=== PATIENT | male | born 1935 | race Caucasian/White ===

== ENCOUNTER 2021-02-08 18:37 | Inpatient (IN) ==
[2021-02-08] MEDS ORDERED: NS 0.9% 1000 ml BAG 1,000 ML IV ONE (19:23)
[2021-02-08 20:19] LABS: Hematocrit 40 % (42-52); Hemoglobin 13.5 g/dL (14.0-18.0); Mean Corpuscular HGB Conc 34 g/dL (31-36); Mean Corpuscular Hemoglobin 34 pg (27-31); Mean Corpuscular Volume 98 fL (80-94); Mean Platelet Volume 8.5 fL (7.4-10.4); Platelet Count 118 10^3/uL (150-450); Red Blood Count 4.03 10^6 /uL (4.18-5.48); Red Cell Distribution Width 13 % (10-15); White Blood Count 8.7 10^3/uL (3.5-10.8)
[2021-02-08 20:35] LABS: INR 1.12 (0.86-1.15)
[2021-02-08 20:36] LABS: ALT 21 U/L (7-52); AST 32 U/L (13-39); Albumin 3.5 g/dL (3.2-5.2); Albumin/Globulin Ratio 1.1 (1-3); Alkaline Phosphatase 65 U/L (35-149); Anion Gap 10 mmol/L (2-11); Blood Urea Nitrogen 36 mg/dL (6-24); C Reactive Protein 211.81 mg/L (<8.01); CO2 Carbon Dioxide 22 mmol/L (22-32); Calcium 8.7 mg/dL (8.6-10.3); Chloride 99 mmol/L (101-111); Globulin 3.3 g/dL (2-4); Glucose 150 mg/dL (70-100); Potassium 4.1 mmol/L (3.5-5.0); Sodium 131 mmol/L (135-145); Total Protein 6.8 g/dL (6.4-8.9)
[2021-02-08 20:40] LABS: Rapid COVID-19 Molecular Undetected (Undetected)
[2021-02-08 20:41] LABS: Troponin I 0.13 ng/mL (<0.03)
[2021-02-08 20:57] LABS: RBC Morphology Normal (Normal)
[2021-02-08 20:58] LABS: ABS Lymphocytes 0.4 10^3/ul (1.0-4.8); ABS Neutrophils 7.3 10^3/ul (1.5-7.7); Lymphocyte % 4.2 %; Toxic Granulation 1+
[2021-02-08 22:52] LABS: Urine Appearance Cloudy; Urine Bilirubin Negative (Negative); Urine Blood 2+ (Negative); Urine Color Yellow; Urine Glucose Negative (Negative); Urine Ketones Negative (Negative); Urine Nitrite Negative (Negative); Urine Protein 3+(>=500 mg/dL) (Negative); Urine Specific Gravity 1.018 (1.002-1.030); Urine Urobilinogen Negative (Negative)
[2021-02-08] MEDS ORDERED: cefTRIAXone 1 gm/50 mL NS BAG 1 GM/50 ML BAG IV ONE (23:07)
[2021-02-08 23:14] LABS: Urine Bacteria 3+ (Absent); Urine Red Blood Cell 1+(3-5/hpf) (Absent); Urine White Blood Cell 3+(>20/hpf) (Absent)
[2021-02-09 00:34] LABS: Troponin I 0.13 ng/mL (<0.03)
[2021-02-09 07:24] LABS: Magnesium 2.2 mg/dL (1.9-2.7)
[2021-02-09 07:26] LABS: Troponin I 0.17 ng/mL (<0.03)
[2021-02-09] MEDS ORDERED: BIOTIN 5 MG PO SCH (09:00)
[2021-02-09] MEDS: Enoxaparin 30 MG/0.3 ML SYR SUBCUT SCH (09:21)
[2021-02-09] MEDS: NS 0.9% 1000 ml BAG 1,000 ML IV SCH (09:31)
[2021-02-09] MEDS: cefTRIAXone 1 gm/50 mL NS BAG 1 GM/50 ML BAG IVPB SCH (09:31)
[2021-02-09] MEDS: CMC:Dorzolamide/Timolol OPTH (NF) 10 ML BOT RIGHT EYE SCH ×2 (10:32→20:09)
[2021-02-09] MEDS: Multivitamins/Minerals TAB PO SCH (11:10)
[2021-02-09 11:46] LABS: Urine Creatinine Concentration 120.15 mg/dL
[2021-02-09] MEDS ORDERED: Perflutren Lipid Microsphere 3 ML VIAL ONE (13:44)
[2021-02-09] MEDS ORDERED: Gabapentin 600 mg TAB (NF) PO SCH (21:00)
[2021-02-10] MEDS: NS 0.9% 1000 ml BAG 1,000 ML IV SCH (03:20)
[2021-02-10] MEDS ORDERED: Albuterol HFA INHALER 8 gm MDI INH ONE (03:40)
[2021-02-10 06:29] LABS: ABS Lymphocytes 0.5 10^3/ul (1.0-4.8); ABS Monocytes 0.9 10^3/ul (0-0.8); ABS Neutrophils 8.7 10^3/ul (1.5-7.7); Hematocrit 39 % (42-52); Hemoglobin 13.5 g/dL (14.0-18.0); Lymphocyte % 5.4 %; Mean Corpuscular HGB Conc 35 g/dL (31-36); Mean Corpuscular Hemoglobin 34 pg (27-31); Mean Corpuscular Volume 99 fL (80-94); Mean Platelet Volume 8.8 fL (7.4-10.4); Platelet Count 119 10^3/uL (150-450); Red Blood Count 3.98 10^6 /uL (4.18-5.48); Red Cell Distribution Width 13 % (10-15); White Blood Count 10.1 10^3/uL (3.5-10.8)
[2021-02-10 07:02] LABS: Anion Gap 8 mmol/L (2-11); Blood Urea Nitrogen 34 mg/dL (6-24); CO2 Carbon Dioxide 22 mmol/L (22-32); Calcium 8.1 mg/dL (8.6-10.3); Chloride 105 mmol/L (101-111); Glucose 126 mg/dL (70-100); Magnesium 2.2 mg/dL (1.9-2.7); Potassium 4.2 mmol/L (3.5-5.0); Sodium 135 mmol/L (135-145)
[2021-02-10 08:09] LABS: Troponin I 0.22 ng/mL (<0.03)
[2021-02-10] MEDS: CMC:Dorzolamide/Timolol OPTH (NF) 10 ML BOT RIGHT EYE SCH ×2 (09:13→21:24)
[2021-02-10] MEDS: BIOTIN 5 MG PO SCH (09:21)
[2021-02-10] MEDS: Multivitamins/Minerals TAB PO SCH (09:22)
[2021-02-10] MEDS: Enoxaparin 30 MG/0.3 ML SYR SUBCUT SCH (09:22)
[2021-02-10] MEDS: cefTRIAXone 1 gm/50 mL NS BAG 1 GM/50 ML BAG IVPB SCH (09:31)
[2021-02-10 11:57] LABS: Troponin I 0.16 ng/mL (<0.03)
[2021-02-10] MEDS: Albuterol HFA INHALER 8 gm MDI INH PRN (18:30)
[2021-02-11] MEDS: Albuterol HFA INHALER 8 gm MDI INH PRN (05:49)
[2021-02-11 06:04] LABS: Hematocrit 40 % (42-52); Hemoglobin 13.5 g/dL (14.0-18.0); Mean Corpuscular HGB Conc 34 g/dL (31-36); Mean Corpuscular Hemoglobin 34 pg (27-31); Mean Corpuscular Volume 99 fL (80-94); Mean Platelet Volume 9.1 fL (7.4-10.4); Platelet Count 119 10^3/uL (150-450); Red Blood Count 4.01 10^6 /uL (4.18-5.48); Red Cell Distribution Width 14 % (10-15); White Blood Count 9.1 10^3/uL (3.5-10.8)
[2021-02-11 06:24] LABS: Calcium 8.3 mg/dL (8.6-10.3); Magnesium 2.1 mg/dL (1.9-2.7); Potassium 4.1 mmol/L (3.5-5.0)
[2021-02-11] MEDS: Multivitamins/Minerals TAB PO SCH (09:31)
[2021-02-11] MEDS: BIOTIN 5 MG PO SCH (09:32)
[2021-02-11] MEDS: Enoxaparin 30 MG/0.3 ML SYR SUBCUT SCH (09:32)
[2021-02-11] MEDS: CMC:Dorzolamide/Timolol OPTH (NF) 10 ML BOT RIGHT EYE SCH ×2 (09:33→21:29)
[2021-02-11] MEDS ORDERED: Metoprolol Tartrate 5 mg VIAL 5 ml VIAL (1 mg/ml) ONE (10:45)
[2021-02-11] MEDS ORDERED: Atropine 0.1 MG/ML 10 ml SYR (1 mg) ONE (10:45)
[2021-02-11] MEDS ORDERED: DOBUTamine 2000 MCG/ML IVPREMX 500 MG/250 ML BAG IV ONE (10:45)
[2021-02-11] MEDS: cefTRIAXone 1 gm/50 mL NS BAG 1 GM/50 ML BAG IVPB SCH (14:30)
[2021-02-12] MEDS: Albuterol HFA INHALER 8 gm MDI INH PRN (06:21)
[2021-02-12 07:04] LABS: Hematocrit 39 % (42-52); Hemoglobin 13.4 g/dL (14.0-18.0); Mean Corpuscular HGB Conc 35 g/dL (31-36); Mean Corpuscular Hemoglobin 34 pg (27-31); Mean Corpuscular Volume 99 fL (80-94); Mean Platelet Volume 9.4 fL (7.4-10.4); Platelet Count 134 10^3/uL (150-450); Red Blood Count 3.92 10^6 /uL (4.18-5.48); Red Cell Distribution Width 14 % (10-15)
[2021-02-12 07:35] LABS: Calcium 8.4 mg/dL (8.6-10.3); Magnesium 2.1 mg/dL (1.9-2.7)
[2021-02-12] MEDS: Multivitamins/Minerals TAB PO SCH (08:42)
[2021-02-12] MEDS: cefTRIAXone 1 gm/50 mL NS BAG 1 GM/50 ML BAG IVPB SCH (08:43)
[2021-02-12] MEDS: Enoxaparin 30 MG/0.3 ML SYR SUBCUT SCH (08:44)
[2021-02-12] MEDS: CMC:Dorzolamide/Timolol OPTH (NF) 10 ML BOT RIGHT EYE SCH (09:09)
[2021-02-12] MEDS: BIOTIN 5 MG PO SCH (10:44)
[2021-02-12 12:18] VITALS: BP 123/76
== END 2021-02-12 14:32 | disposition home or self-care (01) | DRG 871 ==
LOC: ED 18:37 → AA 02-09 13:03 → SUATTDRO 02-09 13:03 → AA 02-09 13:19
PROVIDERS: ADMIT Internal Medicine; ATTEND Internal Medicine

== ENCOUNTER 2022-06-19 12:46 | Inpatient (IN) ==
[2022-06-19] MEDS ORDERED: NS 0.9% 1000 ml BAG 1,000 ML IV ONE ×2 (13:30→13:35)
[2022-06-19] MEDS ORDERED: Dextrose 50% Syringe 50 ml 25 GM/50 ML SYRINGE IV PUSH ONE (13:50)
[2022-06-19 13:52] LABS: Hematocrit 46 % (42-52); Hemoglobin 15.1 g/dL (14.0-18.0); Mean Corpuscular HGB Conc 33 g/dL (31-36); Mean Corpuscular Hemoglobin 33 pg (27-31); Mean Corpuscular Volume 100 fL (80-94); Red Blood Count 4.56 10^6 /uL (4.18-5.48); Red Cell Distribution Width 14 % (10-15)
[2022-06-19 14:10] LABS: ABS Eosinophils 0.1 10^3/ul (0-0.6); ABS Lymphocytes 0.8 10^3/ul (1.0-4.8); ABS Monocytes 0.4 10^3/ul (0-0.8); ABS Neutrophils 2.6 10^3/ul (1.5-7.7); Lymphocyte % 19.6 %; Mean Platelet Volume 8.5 fL (7.4-10.4); Platelet Count 94 10^3/uL (150-450)
[2022-06-19 14:39] LABS: ALT 30 U/L (7-52); Albumin 4.1 g/dL (3.2-5.2); Albumin/Globulin Ratio 1.6 (1-3); Alcohol, S < 13 mg/dL (<13); Alkaline Phosphatase 78 U/L (35-149); Blood Urea Nitrogen 22 mg/dL (6-24); CO2 Carbon Dioxide 27 mmol/L (22-32); Calcium 8.9 mg/dL (8.6-10.3); Chloride 96 mmol/L (101-111); Creatine Kinase 113 U/L (10-223); Creatinine, Serum 0.92 mg/dL (0.67-1.17); Globulin 2.6 g/dL (2-4); Glucose 80 mg/dL (70-100); Lipase 45 U/L (11.0-82.0); Sodium 133 mmol/L (135-145); Total Protein 6.7 g/dL (6.4-8.9); eGFR CKD-EPI 81.5 (>60)
[2022-06-19 14:43] LABS: Anion Gap 10 mmol/L (2-11)
[2022-06-19] MEDS ORDERED: Lidocaine 2% JELLY 6 ML Topical TOPICAL ONE (15:38)
[2022-06-19 17:02] LABS: Potassium Redraw 4.2 mmol/L (3.5-5.0)
[2022-06-19 17:30] LABS: Urine Appearance Clear; Urine Bilirubin Negative (Negative); Urine Blood Negative (Negative); Urine Color Yellow; Urine Glucose 3+(>=500 mg/dL) (Negative); Urine Ketones 2+ (Negative); Urine Nitrite Negative (Negative); Urine Protein 2+(100 mg/dL) (Negative); Urine Specific Gravity 1.023 (1.002-1.030); Urine Urobilinogen Negative (Negative)
[2022-06-19 17:49] LABS: Urine Bacteria Absent (Absent); Urine Red Blood Cell Absent (Absent); Urine White Blood Cell Absent (Absent)
[2022-06-19] MEDS ORDERED: Acetaminophen IV 1 GM/100ML 1,000 MG/100 ML BAG IV ONE (19:02)
[2022-06-19] MEDS ORDERED: Lidocaine 5% OINT TUBE TOPICAL PRN (21:18)
[2022-06-19] MEDS: CMCS: Brimonidine P 0.1%(NF) 1 DROP BTL RIGHT EYE SCH (21:56)
[2022-06-19] MEDS: CMCS: Dorzolamide/Timolol OPTH (NF) 10 ML BOT RIGHT EYE SCH (22:01)
[2022-06-20 03:43] LABS: Urine Appearance Clear; Urine Bilirubin Negative (Negative); Urine Blood 2+ (Negative); Urine Color Yellow; Urine Glucose 3+(>=500 mg/dL) (Negative); Urine Ketones 2+ (Negative); Urine Nitrite Negative (Negative); Urine Protein 2+(100 mg/dL) (Negative); Urine Specific Gravity 1.025 (1.002-1.030); Urine Urobilinogen Negative (Negative)
[2022-06-20 03:55] LABS: Urine Bacteria Absent (Absent); Urine Red Blood Cell 3+(>10/hpf) (Absent); Urine Squamous Epithelial Cell Present (Absent); Urine White Blood Cell 3+(>20/hpf) (Absent)
[2022-06-20 05:53] LABS: ABS Eosinophils 0.1 10^3/ul (0-0.6); ABS Lymphocytes 0.8 10^3/ul (1.0-4.8); ABS Monocytes 0.7 10^3/ul (0-0.8); ABS Neutrophils 3.2 10^3/ul (1.5-7.7); Eosinophil % 1.8 %; Hematocrit 44 % (42-52); Hemoglobin 14.6 g/dL (14.0-18.0); Lymphocyte % 16.6 %; Mean Corpuscular HGB Conc 33 g/dL (31-36); Mean Corpuscular Hemoglobin 33 pg (27-31); Mean Corpuscular Volume 101 fL (80-94); Mean Platelet Volume 8.3 fL (7.4-10.4); Nucleated Red Blood Cells % 0.2; Platelet Count 81 10^3/uL (150-450); Red Blood Count 4.39 10^6 /uL (4.18-5.48); Red Cell Distribution Width 14 % (10-15); White Blood Count 4.8 10^3/uL (3.5-10.8)
[2022-06-20 06:18] LABS: Albumin 3.7 g/dL (3.2-5.2); Albumin/Globulin Ratio 1.5 (1-3); Calcium 8.1 mg/dL (8.6-10.3); Creatinine, Serum 0.8 mg/dL (0.67-1.17); Globulin 2.4 g/dL (2-4); Potassium 3.7 mmol/L (3.5-5.0); Total Bilirubin 1.6 mg/dL (0.2-1.0); Total Protein 6.1 g/dL (6.4-8.9); eGFR CKD-EPI 86.7 (>60)
[2022-06-20] MEDS: CMCS: Dorzolamide/Timolol OPTH (NF) 10 ML BOT RIGHT EYE SCH ×2 (09:35→21:03)
[2022-06-20] MEDS: CMCS: Brimonidine P 0.1%(NF) 1 DROP BTL RIGHT EYE SCH ×4 (09:36→21:04)
[2022-06-20] MEDS ORDERED: hydrALAZINE 20 mg/ml 1 ML Vial IV IV SLOW PU PRN (09:54)
[2022-06-20] MEDS: cefTRIAXone 1 gm/50 mL D5W 1 GM/50 ML BAG IV SCH (16:15)
[2022-06-21 07:57] LABS: ABS Basophils 0.1 10^3/ul (0-0.2); ABS Eosinophils 0.1 10^3/ul (0-0.6); ABS Lymphocytes 0.9 10^3/ul (1.0-4.8); ABS Neutrophils 9.5 10^3/ul (1.5-7.7); Eosinophil % 0.6 %; Hematocrit 48 % (42-52); Hemoglobin 16.1 g/dL (14.0-18.0); Lymphocyte % 8.1 %; Mean Corpuscular HGB Conc 34 g/dL (31-36); Mean Corpuscular Hemoglobin 34 pg (27-31); Mean Corpuscular Volume 100 fL (80-94); Mean Platelet Volume 8.5 fL (7.4-10.4); Platelet Count 97 10^3/uL (150-450); Red Cell Distribution Width 14 % (10-15); White Blood Count 11.6 10^3/uL (3.5-10.8)
[2022-06-21 08:27] LABS: Albumin 3.9 g/dL (3.2-5.2); Albumin/Globulin Ratio 1.4 (1-3); Calcium 8.9 mg/dL (8.6-10.3); Creatinine, Serum 0.93 mg/dL (0.67-1.17); Globulin 2.8 g/dL (2-4); Total Bilirubin 1.5 mg/dL (0.2-1.0); Total Protein 6.7 g/dL (6.4-8.9); eGFR CKD-EPI 80.5 (>60)
[2022-06-21 09:19] VITALS: BP 108/76
[2022-06-21] MEDS: cefTRIAXone 1 gm/50 mL D5W 1 GM/50 ML BAG IV SCH (10:00)
[2022-06-21] MEDS: CMCS: Brimonidine P 0.1%(NF) 1 DROP BTL RIGHT EYE SCH ×2 (10:04→12:17)
[2022-06-21] MEDS: CMCS: Dorzolamide/Timolol OPTH (NF) 10 ML BOT RIGHT EYE SCH (10:04)
== END 2022-06-21 13:50 | disposition home or self-care (01) | DRG 178 ==
LOC: EDHOLD 12:46 → ED 12:46 → SUATTDRO 20:38 → EDHOLD 06-20 07:39 → MED 06-20 09:07
PROVIDERS: ADMIT Internal Medicine; ATTEND Internal Medicine